=== PATIENT | male | born 1975 | race Caucasian/White ===

== ENCOUNTER → 2022-01-08 08:28 | Outpatient (CLI) | payer OTHER, SELFPAY ==
--- NOTE | 2022-01-08 | DI.MRI.S_ITS ---
PROCEDURE: MR LUMBAR SPINE WO CON INDICATIONS: SPINAL STENOSIS, LUMBAR REGION TECHNIQUE: Noncontrast sagittal T1 spin echo and T2 fast echo, sagittal STIR, and T2 fast spin echo through the lumbar spine. In cases with scoliosis, additional coronal T2 fast spin echo may be performed. COMPARISON: None. FINDINGS: Image quality: Excellent. Alignment and Curvature: There is normal bony alignment. Bone Marrow: Modic type 1 edematous endplate changes noted at L4-5 Spinal Cord: Conus medullaris terminates at the L1 level. Visualized cord demonstrates normal signal and size. Paraspinous Soft Tissues: No paravertebral masses. T12-L1: Normal appearance. L1-L2: Normal appearance. L2-L3: Normal appearance. L3-L4: Normal appearance. L4-L5: Mild disc space narrowing with minimal broad-based disc bulge. No central or foraminal stenosis. L5-S1: Mild disc space narrowing. No central or foraminal stenosis. IMPRESSION: Mild degenerative changes without central or foraminal stenosis Approved by: Xu Alexis M.D. on 01/08/2022 at 9:34
== END ==
PROVIDERS: Referring Provider Physical Medicine & Rehabilitation Pain Medicine; Visit Provider Physical Medicine & Rehabilitation Pain Medicine
DX: M47.816 Spondylosis without myelopathy or radiculopathy, lumbar region (principal); M48.061 Spinal stenosis, lumbar region without neurogenic claudication
CPT/HCPCS: 72148

== ENCOUNTER → 2023-09-01 09:03 | Outpatient (CLI) | payer OTHER, SELFPAY ==
--- NOTE | 2023-09-01 09:04 | DI.ECHO.S_ITS ---
[place] [facility] : : [address] : : [place] : : [id number] : : Phone: [phone] Echocardiogram Report + + :Name: MARY PAIZ Study Date: 09/01/2023 Height: 74 in : :[facility] ReadingLocation: Weight: 250 lb : : Gender: Male BSA: 2.4 m2 : :: 1975 Age: 47 yrs BP: 140/90 mmHg: :Reason For Study: ISCHEMIC HEART DISEASE : :Ordering Physician: MARY, : :MICHELE Performed By: Austin Daniel : :Referring: MICHELE HERNANDEZ : + + Interpretation Summary The patient was in sinus rhythm with heart rates between 47-56 bpm during the exam. The ejection fraction is estimated to be 55-60%. Diastolic parameters suggest probable normal left ventricular diastolic function and normal filling pressures. The right ventricle is normal in size and function. The aortic valve is bicuspid. There is mild aortic regurgitation. The ascending aorta is mildly enlarged, 3.9. Pulmonary artery pressures cannot be estimated because of the lack of a measurable TR jet velocity but the IVC suggests a CVP of around 3 mmHg. Procedure: A two-dimensional transthoracic echocardiogram with color flow and Doppler was performed. The study quality was technically adequate. There is no prior echocardiogram noted for this patient. The patient was in sinus rhythm with heart rates between 47-56 bpm during the exam. Left Ventricle: The left ventricle is borderline dilated. Left ventricular wall thickness is normal. The ejection fraction is estimated to be 55-60%. Diastolic parameters suggest probable normal left ventricular diastolic function and normal filling pressures. Right Ventricle: The right ventricle is normal in size and function. Atria: The left atrial size is normal. Right atrial size is normal. The interatrial septum grossly appears intact with no obvious evidence for an atrial septal defect. Mitral Valve: The mitral valve is normal. There is no mitral valve stenosis. There is trace mitral regurgitation. Aortic Valve: The aortic valve is bicuspid. There is no aortic valve stenosis. The aortic valve mean gradient is 9 mmHg. The peak aortic velocity is 2 m/sec. There is mild aortic regurgitation. Tricuspid Valve: The tricuspid valve is not well visualized, but is grossly normal. There is trace tricuspid regurgitation. Pulmonary artery pressures cannot be estimated because of the lack of a measurable TR jet velocity but the IVC suggests a CVP of around 3 mmHg. Pulmonic Valve: The pulmonic valve is not well visualized. There is no pulmonic valvular stenosis. There is no pulmonic valvular regurgitation. Great Vessels: The aortic root is normal size. The ascending aorta is mildly enlarged. The aortic arch is mildly enlarged. The IVC is of normal diameter and collapses greater than 50% with a sniff. This suggests a low right atrial pressure of 3 mm Hg. Pericardium/ Pleura There is no pericardial effusion. There is no pleural effusion. MMode/2D Measurements & Calculations LVIDd: 5.9 cm LVOT diam: 2.4 cm LVIDs: 3.9 cm Ao root diam: 3.5 cm FS: 34.0 % asc Aorta Diam: 3.9 cm IVSd: 0.95 cm Ao Arch Diam (Prox Trans): 3.6 cm LVPWd: 0.94 cm LV galicia. diameter/BSA (cm/m^2): 2.5 LV sys. diameter/BSA (cm/m^2): 1.6 LA A2 area: 20.1 cm2 RA long axis: 5.6 cm LA A4 area: 19.9 cm2 RA area: 25.3 cm2 LA length (vol): 5.9 cm RA vol: 96.9 ml LA vol: 57.7 ml RA : 40.5 ml/m2 LA vol index: 24.2 ml/m2 IVC diam: 1.4 cm RVD1 (basal): 4.5 cm RVD2 (mid): 4.3 cm TAPSE: 3.2 cm Doppler Measurements & Calculations Ao V2 max: 187.0 cm/sec LVOT Max Ahmet: 104.1 cm/sec Ao V2 mean: 135.5 cm/sec LV V1 max P.3 mmHg Ao max P.1 mmHg LV V1 VTI: 26.8 cm Ao mean P.0 mmHg AB(I,D): 2.6 cm2 Ao V2 VTI: 46.3 cm AB(V,D): 2.5 cm2 sev ratio: 0.58 AB indexed to BSA (cm^2/m^2): 1.1 MV E max ahmet: 82.3 cm/sec TR max ahmet: 221.4 cm/sec MV A max ahmet: 44.3 cm/sec TR max P.6 mmHg MV E/A: 1.9 PA V2 max: 107.1 cm/sec Med Peak E' Ahmet: 8.4 cm/sec PA V2 mean: 68.0 cm/sec E/E' med: 9.8 PA mean P.1 mmHg Lat Peak E' Ahmet: 9.9 cm/sec PA pr(Accel): 17.3 mmHg E/E' lat: 8.3 E/e' average: 9.1 MV dec time: 0.22 sec SV([facility]): 118.8 ml Reading Physician:[id number] PM
--- NOTE | 2023-09-01 09:51 | DI.RAD.S_ITS ---
PROCEDURE: XR RIBS BI 3V INDICATIONS: ISCHEMIC HEART DISEASE/DIABETES TECHNIQUE: 2 views of the ribs were acquired. COMPARISON: None. FINDINGS: Surgical changes and devices: None. Bones and chest wall: No acute displaced rib fracture. No suspicious bony lesions. Overlying soft tissues appear unremarkable. Lungs and pleura: The visualized lung appears clear. No pleural effusions or pneumothorax are visible. IMPRESSION: No acute displaced rib fracture. No pneumothorax. Approved by: Jasiel Roblero M.D. on 09/01/2023 at 21:39
--- NOTE | 2023-09-01 09:52 | EKG_ITS ---
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
[2023-09-01 10:40] LABS: Appearance Urine UA CLEAR; Bilirubin Urine UA NEGATIVE (NEGATIVE); Color Urine UA YELLOW; Glucose Urine UA NEGATIVE (Negative); Ketones Urine UA NEGATIVE (NEGATIVE); Leukocyte Esterase Urine UA NEGATIVE (NEGATIVE); Nitrite Urine UA NEGATIVE (Negative); Occult Blood Urine UA NEGATIVE (Negative); Protein Urine UA NEGATIVE (Negative); Specific Gravity Urine UA <=1.005 (1.000-1.035); Urobilinogen Urine UA 0.2 E.U./dL (0.2)
[2023-09-01 10:53] LABS: Bacteria Urine None Seen; Culture Indicated Urine Cult Not Indicated; RBC Urine None Seen (0-5/HPF); Squamous Epithelial Cell Urine None Seen (0-5/HPF); Urine Volume 10mL (spun); WBC Urine 0-1/HPF (0-5/HPF)
[2023-09-01 11:15] LABS: Alanine Aminotransferase 29 IU/L (<50); Albumin 4.7 g/dL (3.5-5.0); Albumin Globulin Ratio 1.8 (1.0-2.8); Alkaline Phosphatase 53 U/L (38-126); Aspartate Aminotransferase 32 IU/L (17-59); BUN Creatinine Ratio 19.4 (6-22); Bilirubin Total 0.6 mg/dL (0.2-1.3); Blood Urea Nitrogen 18 mg/dL (9-20); Calcium 9.4 mg/dL (8.4-10.2); Carbon Dioxide 27 mmol/L (22-32); Chloride 105 mmol/L (98-107); Estimated Glomerular Filt Rate > 60 mL/min (>60); Globulin 2.6 g/dL (1.7-4.1); Glucose 100 mg/dL (70-100); HEMOLYSIS < 15 (0-50); Potassium 4.8 mmol/L (3.4-5.1); Sodium 139 mmol/L (137-145); Total Protein 7.3 g/dL (6.3-8.2)
== END ==
PROVIDERS: Referring Provider Chiropractor; Visit Provider Chiropractor
DX: Q23.1 Congenital insufficiency of aortic valve (principal); I77.89 Other specified disorders of arteries and arterioles; I25.9 Chronic ischemic heart disease, unspecified; E11.9 Type 2 diabetes mellitus without complications; M84.40XA Pathological fracture, unspecified site, initial encounter for fracture
CPT/HCPCS: 36415; 71110; 80053; 81001; 93005; 93010; 93306